=== PATIENT | female | born 1960 | race Caucasian/White ===

== ENCOUNTER 2017-11-20 12:44 | Emergency (ER) | payer OTHER ==
[~2017-11-20] VITALS: Ht 152.4 cm; Wt 78.0 kg
[2017-11-20 13:11] VITALS: Ht 152.4 cm; Wt 78.0 kg
[2017-11-20 14:22] VITALS: BP 139/77
== END 2017-11-20 14:21 | disposition home or self-care (01) ==
LOC: ED 12:44
DX: L30.9 Dermatitis, unspecified (principal); I10 Essential (primary) hypertension; E78.00 Pure hypercholesterolemia, unspecified; E11.9 Type 2 diabetes mellitus without complications
CPT/HCPCS: J1200; J7512

== ENCOUNTER 2018-06-15 14:27 | Emergency (ER) | payer OTHER ==
[~2018-06-15] VITALS: Ht 154.9 cm; Wt 80.3 kg
[2018-06-15 14:55] VITALS: Ht 154.9 cm; Wt 80.3 kg
[2018-06-15 15:22] VITALS: BP 152/73
== END 2018-06-15 15:27 | disposition home or self-care (01) ==
LOC: ED 14:27
DX: L29.9 Pruritus, unspecified (principal); R21 Rash and other nonspecific skin eruption; I10 Essential (primary) hypertension; E11.9 Type 2 diabetes mellitus without complications

== ENCOUNTER 2018-07-03 15:39 | Emergency (ER) | payer OTHER ==
[~2018-07-03] VITALS: Ht 160 cm; Wt 82.2 kg
[2018-07-03 15:47] VITALS: Ht 160 cm; Wt 82.2 kg
[2018-07-03 16:33] VITALS: BP 147/83
== END 2018-07-03 16:33 | disposition home or self-care (01) ==
LOC: ED 15:39
DX: B86 Scabies (principal); I10 Essential (primary) hypertension; E11.9 Type 2 diabetes mellitus without complications; E78.00 Pure hypercholesterolemia, unspecified